=== PATIENT | male | born 1970 | race Caucasian/White ===

== ENCOUNTER → 2019-05-19 | Outpatient (CLI) | payer OTHER ==
--- NOTE | 2019-05-19 12:00 | CONS ---
CONSULTATION DATE OF SERVICE: 05/19/2019 A 48-year-old gentleman who [facility] for obstructive sleep apnea-hypopnea syndrome. HISTORY OF PRESENT ILLNESS/SLEEP-WAKE EVALUATION: Patient has been diagnosed with obstructive sleep apnea about 5 years ago. Since that time, he is on treatment with CPAP and he is using CPAP equipment every night. Recently, he started to have snoring while using his CPAP machine. He has second CPAP unit which is about 2 years old. Patient's sleep schedule from 10 to 6 on working days and from 10 p.m. to 8 am on weekends. Sometimes, he has problems with falling asleep. Has TV set in bedroom, usually sleeps on the side position with his , and according to her now he may have some snoring. He wakes up to one time with possibly one episode of nocturia but not every night. He does not take any naps. [place] Sleepiness Scale is 4. He drinks up to three caffeinated beverages during the day. No history of hypnagogic hallucinations, sleep paralysis or cataplexy. PAST MEDICAL HISTORY: Positive for hypertension. PAST SURGICAL HISTORY: Lump removed from breast. Results are benign. MEDICATIONS: Lisinopril. SOCIAL HISTORY: Negative for smoking. Alcohol consumption of beer and liquor on weekends. FAMILY HISTORY: Hypertension, snoring in the parents. REVIEW OF SYSTEMS: Snoring on CPAP occasionally awakening from sleep with nocturia. Patient increased his weight since the previous titration. PHYSICAL EXAM: gentleman without distress, BP 145/67, HR 71, RR 16, height 5 and 7, weight 210, body mass index 32.8, temperature 98.2, oxygen saturation at room air 98%. OROPHARYNX: Extremely low position of soft palate. Mallampati 4. Restriction of nasal breathing bilaterally. I checked patient's CPAP unit, patient using equipment 100% of the time, 30/30 nights more than 4 hours with average usage 9 hours per night. Leak only 2 L/minute. Apnea- hypopnea index reading from the machine 5.4, pressure is 8 cm of water. For the 6 months usage is 174/189 for more than 4 hours with average usage 7.8 hours. Leak is 17 L/minute. Apnea-hypopnea index 24.8 for 6 months. IMPRESSION: 1. Obstructive sleep apnea-hypopnea syndrome. Patient demonstrated 100% compliance with treatment. Presently has snoring while using CPAP equipment. Present apnea- hypopnea index mildly increased for the last 6 months was significantly increased, but leak from the mask was high at that time. 2. Obesity, body mass index 32.8. 3. Hypertension. 4. Status post lump removed from left side with benign results. 5. Significant restriction of nasal breathing bilaterally. PLAN: 1. I will change regimen to automatic regimen with the range of the pressure from 5- 12. 2. Patient will continue to use CPAP equipment every night for the whole night. 3. Watching and losing weight. 4. No driving if feeling sleepiness. Thank you very much for allowing me to participate in the management of your patient. Sincerely, Josué Gonzalez MD, PhD, FAASM Diplomat of [employer] Manager of [facility] [place] MMODL / NAMANN: [phone] /
== END | disposition home or self-care (01) ==
LOC: SLEEP 10:37
PROVIDERS: ATTEND Internal Medicine
DX: G47.33 Obstructive sleep apnea (adult) (pediatric) (principal); E66.9 Obesity, unspecified; Z68.32 Body mass index [BMI] 32.0-32.9, adult; I10 Essential (primary) hypertension; Z79.899 Other long term (current) drug therapy
CPT/HCPCS: 99211

== ENCOUNTER 2020-04-03 16:04 | Inpatient (IN) | payer OTHER ==
--- NOTE | 2020-04-03 16:17 | ED ---
Lower Extremity Injury HPI - General Source: patient, family Mode of arrival: ambulatory Limitations: no limitations <Julius Purdy - Last Filed: 04/03/20 20:17> <Eduardo Laird - Last Filed: 04/03/20 21:38> - General Chief Complaint: Extremity Injury, Lower Stated Complaint: Fall, ankle injury Time Seen by Provider: 04/03/20 16:14 - History of Present Illness Initial Comments: 49-year-old male presenting to emergency for him with a chief complaint of a fall. Patient reports this occurred about one hour prior to arrival. Patient states he was up on a ladder that is approximately 6 feet off the ground. Patient states the site step gave out and the ladder fell. Patient states his right foot was entangled into the ladder on the way down between the steps. Patient states he otherwise fell on his buttocks. States most of his pain is located on the right ankle along with swelling, erythema and ecchymosis in the region. Denies any numbness or tingling. He denies any pain elsewhere. He denies any loss of consciousness or head injury. He is not on blood thinners. (Julius Purdy) - Related Data Home Medications Medication Instructions Recorded Confirmed Ascorbic Acid [Vitamin C] 500 mg PO DAILY 04/03/20 04/03/20 Cholecalciferol [Vitamin D3 (25 2,000 unit PO DAILY 04/03/20 04/03/20 Mcg = 1000 Iu)] L.acidoph,Paracasei, B.lactis 2 cap PO DAILY 04/03/20 04/03/20 [Probiotic] Lisinopril-Hctz 10-12.5 mg 1 tab PO DAILY 04/03/20 04/03/20 [Zestoretic 10-12.5] Multivit-Mins/Iron/Folic/Lycop 2 tab PO DAILY 04/03/20 04/03/20 [Centrum Men's Tablet] Zinc 50 mg PO DAILY 04/03/20 04/03/20 Allergies Allergy/AdvReac Type Severity Reaction Status Date / Time No Known Allergies Allergy Verified 04/03/20 18:04 Review of Systems ROS Other: All systems not noted in ROS Statement are negative. <Julius Purdy - Last Filed: 04/03/20 20:17> ROS Other: All systems not noted in ROS Statement are negative. <SisiUri - Last Filed: 04/03/20 21:38> ROS Statement: Those systems with pertinent positive or pertinent negative responses have been documented in the HPI. Past Medical History Additional Past Medical History / Comment(s): kidney stones History of Any Multi-Drug Resistant Organisms: None Reported Past Surgical History: No Surgical Hx Reported Past Psychological History: No Psychological Hx Reported Smoking Status: Never smoker Past Alcohol Use History: Daily Past Drug Use History: None Reported <Julius Purdy - Last Filed: 04/03/20 20:17> General Exam Limitations: no limitations General appearance: alert, in no apparent distress Head exam: Present: atraumatic, normal inspection. Absent: other (Negative Babb sign, raccoon eyes, hemotympanum.) Eye exam: Present: normal appearance, PERRL, EOMI Pupils: Present: normal accommodation ENT exam: Present: normal exam, normal oropharynx, mucous membranes moist Neck exam: Present: normal inspection, full ROM. Absent: tenderness Respiratory exam: Present: normal lung sounds bilaterally. Absent: respiratory distress, wheezes, rales Cardiovascular Exam: Present: regular rate, normal rhythm, normal heart sounds Extremities exam: Present: tenderness (Tenderness at the medial malleoli), normal capillary refill, other (Palpable DP and PT.). Absent: normal inspection (Swelling and ecchymosis and erythema on the medial aspect of the right ankle.), full ROM (Limited range of motion in the right ankle), pedal edema, joint swelling, calf tenderness <Julius Purdy - Last Filed: 04/03/20 20:17> Course Vital Signs 04/03/20 04/03/20 04/03/20 16:07 16:48 18:16 Temperature 98.7 F 98.1 F Pulse Rate 79 64 Respiratory 18 16 16 Rate Blood Pressure 130/86 120/76 O2 Sat by Pulse 100 98 Oximetry 04/03/20 04/03/20 04/03/20 19:07 19:19 19:22 Temperature 99.4 F Pulse Rate 65 66 64 Respiratory 16 16 16 Rate Blood Pressure 122/82 116/83 115/64 O2 Sat by Pulse 99 100 100 Oximetry 04/03/20 04/03/20 04/03/20 19:34 19:36 19:50 Temperature 99.0 F Pulse Rate 66 68 63 Respiratory 16 16 16 Rate Blood Pressure 94/74 108/98 84/66 O2 Sat by Pulse 100 100 98 Oximetry 04/03/20 04/03/20 19:58 20:00 Temperature Pulse Rate 64 66 Respiratory 18 16 Rate Blood Pressure 105/77 122/77 O2 Sat by Pulse 97 99 Oximetry Procedures - Orthopedic Joint Reduction Joint #1 Consent Obtained: verbal consent Side: right Joint Reduction Location: ankle Analgesia: procedural sedation Amount of Anesthetic Used (mLs): 110 (Propofol) Technique Used: traction/counter-traction, direct manipulation Post-Reduction Neuro Exam: intact Post-Reduction Vascular Exam: intact Post Reduction X-Ray Obtained: Yes Post Reduction X-Ray Results: reduced Splint Applied: Yes Patient Tolerated Procedure: well, no complications - Orthopedic Splinting/Casting Injury #1 Side: right Lower Extremity Injury Location: ankle Lower Extremity Immobilizer: posterior splint, Bernardo wrap, synthetic pre-padded splint <Julius Purdy - Last Filed: 04/03/20 20:17> Medical Decision Making <Julius Purdy - Last Filed: 04/03/20 20:17> <Eduardo Laird - Last Filed: 04/03/20 21:38> - Medical Decision Making 49-year-old male presenting to the emergency department with chief complaint of a fall. Physical examination reveals injury to the right ankle with localized swelling, tenderness and ecchymosis. X-rays of the foot and ankle and tib-fib reveal a right distal fibular fracture with a subluxation of the tibiotalar joint and widening of the medial clear space. There is also questionable poste rior malleolus fracture. I discussed the case with ROZINA fernandez who advised symptomatic control and joint reduction along with splinting in the emergency department. This was performed in conjunction with the attending, Dr. Laird. Procedural production. Posterior splint with ankle stirrups applied. Patient was given morphine for symptomatic relief. Post reduction x-ray reveals interval reduction of the joint. Patient is otherwise neurovascularly intact before and after reduction. I spoke with candelaria kwong again who says the patient can be admitted under . Per Brandon, surgery will likely be performed on . Case was discussed with . Patient informed regarding the plan and he is agreeable. Admitting physician will be . (Julius Purdy) Procedural sedation note: The patient does request procedural sedation for reduction of his right ankle dislocation. This some benefits are discussed in detail and verbal consent is obtained. The patient was placed on cardiorespiratory monitoring and capnometer monitoring. With nurse and respiratory therapist present, he received several doses of propofol. He tolerated this quite well. No complications were encountered during the procedural sedation. There is no blood loss. The sedation was started at 1916 and ended at 1923. The patient woke up very nicely and does not remember the incident. (Eduardo Laird) Disposition Is patient prescribed a controlled substance at d/c from ED?: No Time of Disposition: 20:23 <Julius Purdy - Last Filed: 04/03/20 20:17> <Eduardo Laird - Last Filed: 04/03/20 21:38> Clinical Impression: Closed right ankle fracture, Fracture of distal end of fibula Disposition: ADMITTED IP TO THIS HOSP Condition: Good
[2020-04-03] MEDS ORDERED: MORPHINE SULFATE 4 MG/ML SYRINGE IM STA (16:24)
--- NOTE | 2020-04-03 16:55 | XR ---
RESULT: HISTORY: fall injury with pain. TECHNIQUE: 2 views of the right ankle were obtained. COMPARISON: None. FINDINGS: There is a mildly displaced high fracture of the distal fibula. There is also a suspicious fracture o f the posterior malleolus. No evidence of dislocation. No radiopaque foreign body. There is mild wide ryan of the medial clear space. IMPRESSION: Acute distal fibular fracture with mild widening of the medial clear space. Suspected posterior malleolar fracture.
--- NOTE | 2020-04-03 18:03 | XR ---
RESULT: HISTORY: fall, ankle fx TECHNIQUE: 2 views of the right tibia-fibula. AP view of the right ankle. 3 views of the right foot. COMPARISON: Earlier same day. FINDINGS: There is a mildly displaced high fracture of the distal fibula. There is mild medial subluxation of t he tibiofibular joint and resultant mild widening of the medial clear space. No acute fracture of the proximal tibia or fibula. No acute fracture of the right foot. IMPRESSION: Right distal fibula fracture with subluxation of the tibiotalar joint and widening of the medial elsi r space.
--- NOTE | 2020-04-03 18:04 | XR ---
RESULT: HISTORY: fall with pain. TECHNIQUE: AP view of pelvis were obtained. COMPARISON: None. FINDINGS: There is no acute fracture or dislocation. The visualized joint spaces are grossly preserved. IMPRESSION: No acute osseous abnormality.
[2020-04-03] MEDS ORDERED: PROPOFOL 10 MG/ML 20 ML VIAL IV ONE ×2 (18:31→19:20)
--- NOTE | 2020-04-03 19:13 | XR ---
RESULT: HISTORY: fall ,injury TECHNIQUE: 2 views of the right tibia-fibula. AP view of the right ankle. 3 views of the right foot. COMPARISON: Earlier same day. FINDINGS: There is a mildly displaced high fracture of the distal fibula. There is mild medial subluxation of t he tibiofibular joint and resultant mild widening of the medial clear space. No acute fracture of the proximal tibia or fibula. No acute fracture of the right foot. IMPRESSION: Right distal fibula fracture with subluxation of the tibiotalar joint and widening of the medial elsi r space.
--- NOTE | 2020-04-03 19:53 | XR ---
RESULT: HISTORY: post reduction TECHNIQUE: 3 views of the right ankle were obtained. COMPARISON: Earlier same day. FINDINGS: There is interval reduction and splinting of the distal fibular fracture, with similar alignment, com pared to the index radiographs. There is persistent widening of the medial clear space. There is agai n questionable fracture of the posterior malleolus. IMPRESSION: As above.
[2020-04-03] MEDS ORDERED: MORPHINE SULFATE 4 MG/ML SYRINGE IVP STA (19:59)
[2020-04-03] MEDS ORDERED: ONDANSETRON 4 MG/2 ML VIAL IVP PRN (20:15)
[2020-04-03] MEDS ORDERED: LORazepam 2 MG/ML INJ IV PRN (20:15)
[2020-04-03] MEDS ORDERED: traMADol 50 MG TAB PO PRN (20:15)
[2020-04-03] MEDS ORDERED: IBUPROFEN 400 MG TAB PO PRN (20:15)
[2020-04-03] MEDS ORDERED: ACETAMINOPHEN TAB 325 MG TAB PO PRN (20:15)
[2020-04-03] MEDS ORDERED: HYDROmorphone 0.5 MG/0.5 ML SYRINGE IVP PRN (20:15)
[2020-04-03] MEDS ORDERED: MORPHINE SULFATE 4 MG/ML SYRINGE IV PRN (20:15)
[2020-04-03] MEDS ORDERED: NALOXONE 0.4 MG/ML 1 ML VIAL IV PRN (20:15)
[2020-04-03] MEDS ORDERED: HYDROmorphone 1 MG/ML 1 ML SYRINGE IVP PRN (20:15)
[2020-04-03] MEDS: HYDROcodone/APAP 5-325MG 1 EACH TAB PO PRN (22:05)
[2020-04-03] MEDS: HEPARIN SODIUM,PORCINE 5,000 UNIT/ML 1 ML VIAL SQ SCH (22:06)
[2020-04-03 22:40] LABS: Basophils % (A) 0 %; Eosinophils # (A) 0.1 k/uL (0-0.7); Eosinophils % (A) 1 %; HCT 39.8 % (39.0-53.0); HGB 13.7 gm/dL (13.0-17.5); Lymphocytes # (A) 1.1 k/uL (1.0-4.8); Lymphocytes % (A) 11 %; MCH 32.2 pg (25.0-35.0); MCHC 34.5 g/dL (31.0-37.0); MCV 93.4 fL (80.0-100.0); Mean Platelet Volume 7.1; Monocytes # (A) 0.6 k/uL (0-1.0); Monocytes % (A) 6 %; Neutrophils # (A) 8.2 k/uL (1.3-7.7); Neutrophils % (A) 81 %; Platelet Count 204 k/uL (150-450); RBC 4.27 m/uL (4.30-5.90); RDW 12.4 % (11.5-15.5); WBC 10.2 k/uL (3.8-10.6)
[2020-04-04] MEDS: HYDROcodone/APAP 5-325MG 1 EACH TAB PO PRN ×3 (08:08→19:19)
[2020-04-04] MEDS: HEPARIN SODIUM,PORCINE 5,000 UNIT/ML 1 ML VIAL SQ SCH ×2 (08:09→21:08)
[2020-04-04] MEDS: MULTIVITAMINS, THERA 1 EACH TAB PO SCH (08:44)
[2020-04-04] MEDS: ZINC SULFATE 220 MG CAP PO SCH (08:44)
[2020-04-04] MEDS: ASCORBIC ACID 500 MG TAB PO SCH (08:44)
[2020-04-04] MEDS: LACTOBACILLUS ACIDOPH & BULGAR 1 EACH PACKET PO SCH (08:44)
[2020-04-04] MEDS: CHOLECALCIFEROL 1,000 UNIT TAB PO SCH (08:44)
[2020-04-04 09:15] LABS: Prothrombin Time 10.6 sec (9.0-12.0)
[2020-04-04 10:06] LABS: African American GFR (CKD) 115.8 (60.0-200.0); Albumin 4.2 g/dL (3.80-4.90); Albumin/Globulin Ratio 1.83 (1.60-3.17); Anion Gap 9.3 mmol/L (4.00-12.00); BUN/Creat Ratio 27.78 Ratio (12.00-20.00); Calcium 9.2 mg/dL (8.7-10.3); Carbon Dioxide 25.7 mmol/L (21.6-31.8); Globulin 2.3 g/dL (1.6-3.3); Non-African American GFR(CKD) 99.9 (60.0-200.0); Potassium 3.9 mmol/L (3.5-5.5); Total Bilirubin 0.9 mg/dL (0.2-1.2); Total Protein 6.5 g/dL (6.2-8.2)
[2020-04-04] MEDS: LISINOPRIL-HCTZ 10-12.5 MG 1 EACH TAB PO SCH (10:14)
--- NOTE | 2020-04-04 10:31 | P.HPOR ---
History of Present Illness H&P Date: 04/04/20 Chief Complaint: Right ankle fracture Patient is a 49-year-old male who presented to [facility] yesterday later afternoon after sustaining an injury to his right ankle. Patient was on a ladder about 6 feet up when he lost his balance and stumbled on the ladder, his foot became twisted in the ladder and he fel onto his back. He had immediate pain along with swelling to the right ankle, he reported to the hospital for further evaluation. Upon arrival to the hospital, imaging and lab tests were done. Images demonstrated a bimalleolar fracture involving the distal fibula and posterior malleus the tibia along with a tibiotalar dislocation. I was contacted by the emergency room staff regarding the patient, I was able to review the images with my attending Dr. Chirinos. We recommended sedation at bedside with relocation and splinting with plan for surgical intervention in the near future. ER staff was able to relocate and splint the right lower extremity, patient's neurovascular status was intact prior and after the procedure. Patient was a dmitted under orthopedic care with plan for surgical intervention. Patient was evaluated today at bedside, he is resting in his hospital bed. He appears to be in no acute distress. He notes most discomfort involving the right ankle mainly with movement. There is a posterior splint with Bernardo bandage fixation present. He denies any knee pain, proximal femur, hip pain. He denies any pain of the left lower extremity, bilateral upper extremities, cervical, thoracic, or lumbar pain. He denies any numbness or tingling in bilateral lower extremities bilateral upper extremities. Patient denies any previous surgery involving the right lower extremity. He currently denies any headaches, lightheadedness, chest pain, shortness of breath, nausea vomiting, fever or chills. Review of Systems Constitutional: Reports as per HPI Past Medical History Past Medical History: Hypertension Additional Past Medical History / Comment(s): kidney stones History of Any Multi-Drug Resistant Organisms: None Reported Past Surgical History: No Surgical Hx Reported Additional Past Surgical History / Comment(s): cyst removed from L axilla Past Anesthesia/Blood Transfusion Reactions: No Reported Reaction Past Psychological History: No Psychological Hx Reported Smoking Status: Never smoker Past Alcohol Use History: Daily Past Drug Use History: None Reported - Past Family History Father Additional Family Medical History / Comment(s): cancer of the neck; tumor removed Medications and Allergies Home Medications Medication Instructions Recorded Confirmed Type Ascorbic Acid [Vitamin C] 500 mg PO DAILY 04/03/20 04/03/20 History Cholecalciferol [Vitamin D3 (25 2,000 unit PO DAILY 04/03/20 04/03/20 History Mcg = 1000 Iu)] L.acidoph,Paracasei, B.lactis 2 cap PO DAILY 04/03/20 04/03/20 History [Probiotic] Lisinopril-Hctz 10-12.5 mg 1 tab PO DAILY 04/03/20 04/03/20 History [Zestoretic 10-12.5] Multivit-Mins/Iron/Folic/Lycop 2 tab PO DAILY 04/03/20 04/03/20 History [Centrum Men's Tablet] Zinc 50 mg PO DAILY 04/03/20 04/03/20 History Allergies Allergy/AdvReac Type Severity Reaction Status Date / Time No Known Allergies Allergy Verified 04/03/20 18:04 Physical Examination Right lower extremity: Posterior splint is in good position and condition with Bernardo bandage fixation. He is able to wiggle the toes and no difficulty. His sensation to light touch both proximal and distal to the splinter intact. according to the ER note, there is no significant skin tears or abnormalities noted prior to after the reduction. There was notable ecchymosis. No effusion surrounding the knee, no tenderness with palpation of the knee. There is no tenderness with palpation of the proximal femur. Logroll maneuver reproduces no pain. He is able to straight leg raise with no pain. Calf is soft, no tenderness with palpation. Cap refill in the toes is less than 2 seconds. General orthopedic exam: Patient demonstrates no tenderness with palpation of the cervical, thoracic or lumbar spine region including midline and paraspinal region, there is no obvious skin changes noted Full range of motion of all major muscle groups of the bilateral upper extremities No obvious skin changes are noted in the left lower extremity, he is nontender with palpation throughout the extremity. Range of motion of all major muscle groups is intact. Sensory exam to light touch throughout the extremity is in tact. Dorsalis pedis pulse and posterior tibialis pulses are 2+. Results - Labs Labs: Abnormal Lab Results - Last 24 Hours (Table) 01/12/21 01/12/21 Range/Units 22:20 22:20 RBC 4.27 L (4.30-5.90) m/uL Neutrophils # 8.2 H (1.3-7.7) k/uL BUN/Creatinine Ratio 27.78 H (12.00-20.00) Ratio H & H 04/03/20 Range/Units 22:20 Hgb 13.7 (13.0-17.5) gm/dL Hct 39.8 (39.0-53.0) % Coagulation 04/03/20 Range/Units 22:20 INR 1.0 (<1.2) Result Diagrams: 04/03/20 22:20 04/03/20 22:20 - Diagnostic results Hip x-ray: report reviewed, image reviewed Ankle/Foot x-ray: report reviewed, image reviewed Assessment and Plan Assessment: Imaging: Multiple x-rays were taken in the emergency room yesterday, those were reviewed both report and images. Images of the foot demonstrated no acute fractures or dislocations of the midfoot, forefoot or hindfoot. X-rays of the ankle demonstrated r and syndesmotic disruption ight bimalleolar ankle fracture with tibiotalar dislocation, post reduction x-rays were also reviewed which demonstrated relocation of the joint, evident of the comminuted distal fibular fragments along with posterior malleolus fracture of the tibia. X-rays of the tib-fib do demonstrate no acute findings involving the right knee. Pelvis x-rays also demonstrated no acute osseous abnormalities or fractures. Plan: Right ankle bimalleolar fracture with syndesmotic injury Right ankle tibiotalar dislocation, status post relocation with splinting Status post fall from ladder Plan: I was able to discuss the case, including the physical exam findings and imaging studies my attending Dr. Chirinos on 04/03/2020. After admission, proper lab test and medications were ordered. Plan is for surgery on 04/05/2020. We will proceed with an open reduction internal fixation of the right bimalleolar ankle fracture with syndesmotic repair. Risk and benefits of the procedure were discussed with the patient, this to include but do not exclude infection, blood loss, neurovascular injury, developmental blood clots, and adequate healing of bone, need for subsequent surgery. Obtain consent NPO after midnight Nonweightbearing right lower extremity Pain control, oral and IV medication as needed DVT prophylaxis, heparin 5000 units every 12 hours was started, this we discontinued the night before surgery and restarted after. Anticipate aspirin 325 mg daily for discharge Medical recommendations Further recommendations to follow
--- NOTE | 2020-04-04 20:47 | P.CONS ---
History of Present Illness - Reason for Consult Consult date: 04/04/20 Medical management Requesting physician: Froilan Chirinos - Chief Complaint Right ankle injury - History of Present Illness Consultation: This is a pleasant 49-year-old patient of Dr. Perales. Patient was working on a ladder on uneven ground and lost balance. The ladder fell on his right ankle. Resulting in severe pain. Patient brought into the ER x-ray did confirm a fracture. Patient denies any cardiac or pulmonary history. Has got a good exercise tolerance. No cardiac or respiratory symptoms. No fever no chills. Has a history of hypertension. And kidney stones in the past. Has got a Bernardo wrap in the right ankle. Due for surgery tomorrow. 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 . Has one mixed drink a day. Physical examination: VITAL SIGNS: 98.6, 63, 16, 129/82, 96% room air GENERAL: BMI 29%, laying in bed, comfortable. EYES: Pupils equal. Conjunctiva normal. HEENT: External appearance of nose and ears normal, oral cavity grossly normal. NECK: JVD not raised; masses not palpable. HEART: First and second heart sounds are normal; no edema. LUNGS: Respiratory rate normal; clear to auscultation. ABDOMEN: Soft, nontender, liver spleen not palpable, no masses palpable. PSYCH: Alert and oriented x3; mood and affect normal MUSCULAR skeletal: Right ankle in a Bernardo wrap dressing.. NEUROLOGICAL: Cranial nerves grossly intact; no facial asymmetry, power and sensation grossly intact. LYMPHATICS: No lymph nodes palpable in the axilla and neck INVESTIGATIONS, reviewed in the clinical context: White count 10.2 hemoglobin 13.7 platelets 204 potassium 3.9 creatinine 0.9 Right foot [id number] displaced high fracture of the distal fibula. Mild medial subluxation of the tibiofibular joint. Assessment: -Acute subluxation of the tibiotalar joint with widening of the medial sclera space secondary to fall -Right distal tibia fracture, 60 to fall -Essential hypertension -Kidney stones asymptomatic Plan: Patient is on heparin for DVT prophylaxis. Pain control in place. Home medications resumed. Care was discussed with the patient. Questions were answered. Baseline EKG is being ordered. Cardiovascular risk assessment for surgery: Patient is a low risk for surgery given that patient has no cardio pulmonary risk factors or symptoms. Has got a good excise tolerance. Expected blood loss from the surgery to be low. Care was discussed with the patient question a nswered. Thank you Dr. López Past Medical History Past Medical History: Hypertension Additional Past Medical History / Comment(s): kidney stones History of Any Multi-Drug Resistant Organisms: None Reported Past Surgical History: No Surgical Hx Reported Additional Past Surgical History / Comment(s): cyst removed from L axilla Past Anesthesia/Blood Transfusion Reactions: No Reported Reaction Past Psychological History: No Psychological Hx Reported Smoking Status: Never smoker Past Alcohol Use History: Daily Past Drug Use History: None Reported - Past Family History Father Additional Family Medical History / Comment(s): cancer of the neck; tumor removed Medications and Allergies Home Medications Medication Instructions Recorded Confirmed Type Ascorbic Acid [Vitamin C] 500 mg PO DAILY 04/03/20 04/03/20 History Cholecalciferol [Vitamin D3 (25 2,000 unit PO DAILY 04/03/20 04/03/20 History Mcg = 1000 Iu)] L.acidoph,Paracasei, B.lactis 2 cap PO DAILY 04/03/20 04/03/20 History [Probiotic] Lisinopril-Hctz 10-12.5 mg 1 tab PO DAILY 04/03/20 04/03/20 History [Zestoretic 10-12.5] Multivit-Mins/Iron/Folic/Lycop 2 tab PO DAILY 04/03/20 04/03/20 History [Centrum Men's Tablet] Zinc 50 mg PO DAILY 04/03/20 04/03/20 History Allergies Allergy/AdvReac Type Severity Reaction Status Date / Time No Known Allergies Allergy Verified 04/03/20 18:04 Physical Exam Vitals: Vital Signs Temp Pulse Pulse Resp BP BP Pulse Ox 04/04/20 08:30 16 04/04/20 08:00 98.6 F 63 16 129/82 96 04/04/20 02:23 98.0 F 67 16 113/67 97 04/03/20 22:10 98.4 F 62 18 136/79 97 04/03/20 20:00 66 16 122/77 99 04/03/20 19:58 64 18 105/77 97 04/03/20 19:50 99.0 F 63 16 84/66 98 04/03/20 19:36 68 16 108/98 100 04/03/20 19:34 66 16 94/74 100 04/03/20 19:22 64 16 115/64 100 04/03/20 19:19 66 16 116/83 100 04/03/20 19:07 99.4 F 65 16 122/82 99 04/03/20 18:16 98.1 F 64 16 120/76 98 04/03/20 16:48 16 04/03/20 16:07 98.7 F 79 18 130/86 100 Intake and Output 04/03/20 04/04/20 04/04/20 22:59 06:59 14:59 Intake Total 790 Balance 790 Intake: Oral 790 Other: Voiding Method Urinal Urinal # Voids 1 Weight 88.451 kg Results CBC & Chem 7: 04/03/20 22:20 04/03/20 22:20 Labs: Abnormal Lab Results - Last 24 Hours (Table) 04/03/20 04/03/20 Range/Units 22:20 22:20 RBC 4.27 L (4.30-5.90) m/uL Neutrophils # 8.2 H (1.3-7.7) k/uL BUN/Creatinine Ratio 27.78 H (12.00-20.00) Ratio
[2020-04-05] MEDS: MULTIVITAMINS, THERA 1 EACH TAB PO SCH (08:16)
[2020-04-05] MEDS: ASCORBIC ACID 500 MG TAB PO SCH (08:16)
[2020-04-05] MEDS: CHOLECALCIFEROL 1,000 UNIT TAB PO SCH (08:16)
[2020-04-05] MEDS: ZINC SULFATE 220 MG CAP PO SCH (08:16)
[2020-04-05] MEDS: LACTOBACILLUS ACIDOPH & BULGAR 1 EACH PACKET PO SCH (08:16)
[2020-04-05] MEDS: LISINOPRIL-HCTZ 10-12.5 MG 1 EACH TAB PO SCH (08:45)
[2020-04-05] MEDS ORDERED: fentaNYL (PF) 50 MCG/ML 2 ML AMP IVP ONE (17:21)
[2020-04-05] MEDS ORDERED: MIDAZOLAM 2 MG/2 ML VIAL IVP ONE (17:21)
[2020-04-05] MEDS ORDERED: LACTATED RINGERS 1,000 ML IV ONE ×2 (17:23→20:27)
[2020-04-05] MEDS ORDERED: ONDANSETRON 4 MG/2 ML VIAL IVP ONE (17:24)
[2020-04-05] MEDS ORDERED: DEXAMETHASONE SOD PHOSPHATE 4 MG/ML 1 ML VIAL IVP ONE (17:25)
[2020-04-05] MEDS ORDERED: SUCCINYLCHOLINE CHLORIDE 100 MG/5 ML SYR IV ONE (19:15)
[2020-04-05] MEDS ORDERED: ROPIVACAINE 5 MG/ML 30 ML VIAL ONE (19:15)
[2020-04-05] MEDS ORDERED: fentaNYL (PF) 50 MCG/ML 2 ML AMP ONE (19:15)
[2020-04-05] MEDS ORDERED: MIDAZOLAM 2 MG/2 ML VIAL ONE (19:15)
[2020-04-05] MEDS ORDERED: PHENYLEPHRINE 10 MG/ML VIAL ONE (19:15)
[2020-04-05] MEDS ORDERED: LIDOCAINE 1% INJ 10MG/ML (20 ML MDV) ONE (19:15)
[2020-04-05] MEDS ORDERED: PROPOFOL 10 MG/ML 20 ML VIAL IV ONE (19:15)
[2020-04-05] MEDS ORDERED: SODIUM CHLORIDE 0.9% 100 ML with ceFAZolin 2,000 MG IV ONE ×4 (19:18)
--- NOTE | 2020-04-05 20:51 | P.OP ---
Date of Procedure: 04/05/20 Preoperative Diagnosis: Displaced/comminuted right ankle lateral malleolar fracture with syndesmotic disruption Postoperative Diagnosis: Same Procedure(s) Performed: 1. Open reduction and internal fixation right ankle lateral malleolar fracture 2. Open repair right ankle syndesmotic injury Implants: Arthrex 7 hole one third semitubular plate Arthrex syndesmotic tight rope Anesthesia: GETA, regional (Popliteal block) Surgeon: Froilan Chirinos Boating Safety Officer #1: Gavin Harvey Estimated Blood Loss (ml): 12 Pathology: none sent Condition: stable Disposition: PACU Indications for Procedure: 49-year-old gentleman seen with a displaced/comminuted high lateral right ankle malleolar fracture with syndesmotic injury. I recommended ORIF lateral malleolar fracture with repair syndesmotic injury. He was agreeable and consent was obtained. Operative Findings: See description of procedure Description of Procedure: The patient was taken to the operative suite. The patient did have a popliteal block performed by the department of anesthesia for postoperative pain management. He underwent a general anesthetic by the department of anesthesia. He received preoperative IV antibiotics. A well-padded tourniquet placed proximal right lower extremity. Right lower extremity prepped and draped in the normal sterile orthopedic fashion. The extremity was elevated and tourniquet insufflated to 300. An incision was made beginning proximal to the fracture site extending all the way distally in line with the lateral malleolus sharply through skin. We carefully dissected on the fracture site and distally. There was a fairly comminuted fracture with large posterior butterfly fragment. The fracture was reduced with the assistance of Brandon HANDY. I placed a 7 hole one third semitubular plate along the lateral malleolus and secured. The 3 distal and 3 proximal drill holes were made and appropriate length screws were inserted all achieving good bite and purchase. I reviewed the construct and noted good reduction of the fracture with synagogue of the mortise. I decided to stabilize the mortise given the significant syndesmotic injury. I I had Brandon HANDY hole the ankle in neutral position while I drilled a hole across the syndesmotic joint utilizing a cannulated drill bit. I now introduced and the Arthrex tight rope syndesmotic button repair system exiting out the medial side of the tibia. The button flipped. We now attention to the tight rope accordingly stabilize the syndesmotic Yao. Suture limbs were clipped. I now reviewed the entire construct under AP lateral and oblique intraoperative imaging. There was synagogue of the mortise. There was good stable alignment of the fracture. Spot films were obtained to document this. The wounds were irrigated. The subcu soft tissues were repaired 2-0 Vicryl. The skin is proximal skin letty. Sterile dressings were applied. The tourniquet was raised may Refill noted. A modified bulky Wang splint was now placed with ankle in neutral position. The patient was awakened, transferred to a bed and recovery stable condition. Brandon HANDY assisted with the entire procedure.
--- NOTE | 2020-04-05 20:56 | P.PN ---
Progress Note - Text Progress Note Date: 04/05/20 - Chief Complaint Right ankle injury - History of Present Illness Consultation: This is a pleasant 49-year-old patient of Dr. Perales. Patient was working on a ladder on uneven ground and lost balance. The ladder fell on his right ankle. Resulting in severe pain. Patient brought into the ER x-ray did confirm a fracture. Patient denies any cardiac or pulmonary history. Has got a good exercise tolerance. No cardiac or respiratory symptoms. No fever no chills. Has a history of hypertension. And kidney stones in the past. Has got a Bernardo wrap in the right ankle. Due for surgery tomorrow. Admitted with acute subluxation of the tibiotalar joint with widening of the medial sclera space, on the right foot Today-saw the patient this afternoon. Pending to go down for surgery. Late in the day patient was taken for surgery. Active Medications Acetaminophen (Acetaminophen Tab 325 Mg Tab) 650 mg PO Q6HR PRN PRN Reason: Mild Pain or Fever > 100.5 Hydrocodone Bitart/Acetaminophen (Hydrocodone/Apap 5-325mg 1 Each Tab) 1 each PO Q4HR PRN PRN Reason: Moderate Pain Last Admin: 04/04/20 19:19 Dose: 1 each Documented by: Ascorbic Acid (Ascorbic Acid 500 Mg Tab) 500 mg PO DAILY [facility] Last Admin: 04/05/20 08:16 Dose: Not Given Documented by: Cholecalciferol (Cholecalciferol 1,000 Unit Tab) 2,000 unit PO DAILY [facility] Last Admin: 04/05/20 08:16 Dose: Not Given Documented by: Lisinopril/HCTZ (Lisinopril-Hctz 10-12.5 Mg 1 Each Tab) 1 each PO DAILY [facility] Last Admin: 04/05/20 08:45 Dose: 1 each Documented by: Hydromorphone HCl (Hydromorphone 0.5 Mg/0.5 Ml Syringe) 0.5 mg IVP Q3HR PRN PRN Reason: Moderate Pain Hydromorphone HCl (Hydromorphone 1 Mg/Ml 1 Ml Syringe) 1 mg IVP Q3HR PRN PRN Reason: Severe Pain Cefazolin Sodium 2 gm/ Sodium (Chloride) 50 mls @ 100 mls/hr IVPB Q8H [facility] Stop: 04/06/20 11:59 Ibuprofen (Ibuprofen 400 Mg Tab) 400 mg PO Q6HR PRN PRN Reason: Mild Pain or Fever > 100.5 Lactobacillus Acidoph/Bulgaricus (Lactobacillus Acidoph & Bulgar 1 Each Packet) 1 each PO DAILY [facility] Last Admin: 04/05/20 08:16 Dose: Not Given Documented by: Lorazepam (Lorazepam 2 Mg/Ml Inj) 0.5 mg IV Q6HR PRN PRN Reason: Anxiety Morphine Sulfate (Morphine Sulfate 4 Mg/Ml Syringe) 4 mg IV Q4HR PRN PRN Reason: Severe Pain Multivitamins (Multivitamins, Thera 1 Each Tab) 1 each PO DAILY [facility] Last Admin: 04/05/20 08:16 Dose: Not Given Documented by: Naloxone HCl (Naloxone 0.4 Mg/Ml 1 Ml Vial) 0.2 mg IV Q2M PRN PRN Reason: Opioid Reversal Ondansetron HCl (Ondansetron 4 Mg/2 Ml Vial) 4 mg IVP Q8HR PRN PRN Reason: Nausea And Vomiting Tramadol HCl (Tramadol 50 Mg Tab) 50 mg PO Q6H PRN PRN Reason: Moderate Pain Zinc Sulfate (Zinc Sulfate 220 Mg Cap) 220 mg PO DAILY [facility] Last Admin: 04/05/20 08:16 Dose: Not Given Documented by: Past medical history to include: Hypertension, kidney stones Social history: 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 . Has one mixed drink a day. Physical examination: VITAL SIGNS: 98.5, 78, 17, 126 a 74, 95% room air GENERAL: BMI 29%, laying in bed, comfortable. EYES: Pupils equal. Conjunctiva normal. HEENT: External appearance of nose and ears normal, oral cavity grossly normal. NECK: JVD not raised; masses not palpable. HEART: First and second heart sounds are normal; no edema. LUNGS: Respiratory rate normal; clear to auscultation. ABDOMEN: Soft, nontender, liver spleen not palpable, no masses palpable. PSYCH: Alert and oriented x3; mood and affect normal MUSCULAR skeletal: Right ankle in a Bernardo wrap dressing.. INVESTIGATIONS, reviewed in the clinical context: White count 10.2 hemoglobin 13.7 platelets 204 potassium 3.9 creatinine 0.9 Right foot [id number] displaced high fracture of the distal fibula. Mild medial subluxation of the tibiofibular joint. Assessment: -Acute subluxation of the tibiotalar joint with widening of the medial sclera space secondary to fall-related today underwent open reduction internal fixation. -Right distal tibia fracture, 60 to fall -Essential hypertension -Kidney stones asymptomatic Plan: Continue current medication treatment plan. Patient's prophylactically on IV Ancef. Pain control in place. Add Lovenox for DVT prophylaxis. Thank you Dr. López
--- NOTE | 2020-04-05 21:10 | P.ANPRN ---
Procedure Note - Anesthesia - Nerve Block Performed Right Popliteal Time Out Performed: Yes (17:20) Date of Procedure: 04/05/20 Procedure Start Time: : Procedure Stop Time: 17:34 Location of Patient: PreOp Indication: Acute Post-Operative Pain, Requested by Surgeon (Dr Chirinos) Sedation Type: Sedate with meaningful contact maintained Preparation: Sterile Prep Position: Left Lateral Catheter: None Needle Types: Pajunk Needle Gauge: Other (see comment) (22g) Ultrasound used to visualize needle placement: Yes Ultrasound used to observe medication spread: Yes Injectate: 0.5% Ropivacaine (see comment for volume) (20cc) Blood Aspirated: No Pain Paresthesia on Injection Noted: No Resistance on Injection: Normal Image Stored and Saved: Yes Events: Uneventful and Well Tolerated
[2020-04-06 03:43] VITALS: RESP 18
[2020-04-06 07:35] VITALS: BP 102/60; PULSE 70; TEMP 98.5
[2020-04-06] MEDS: LISINOPRIL-HCTZ 10-12.5 MG 1 EACH TAB PO SCH (08:02)
[2020-04-06] MEDS: ZINC SULFATE 220 MG CAP PO SCH (08:02)
[2020-04-06] MEDS: CHOLECALCIFEROL 1,000 UNIT TAB PO SCH (08:02)
[2020-04-06] MEDS: ASCORBIC ACID 500 MG TAB PO SCH (08:02)
[2020-04-06] MEDS: MULTIVITAMINS, THERA 1 EACH TAB PO SCH (08:02)
[2020-04-06] MEDS: LACTOBACILLUS ACIDOPH & BULGAR 1 EACH PACKET PO SCH (08:02)
--- NOTE | 2020-04-06 08:52 | FL ---
Fluoroscopy HISTORY: Open reduction internal fixation, ankle fracture 2 minutes 34 seconds fluoroscopy time supplied to the referring clinician. 3 intraoperative C-arm im ages document the procedure. See dictated report from orthopedic surgery.
[2020-04-06] MEDS ORDERED: ENOXAPARIN 40 MG/0.4 ML SYRINGE SQ SCH (09:00)
--- NOTE | 2020-04-06 09:25 | XR ---
Limited right ankle HISTORY: Open reduction internal fixation, fracture 3 intraoperative C-arm images document the procedure.
--- NOTE | 2020-04-06 10:40 | P.PN ---
Subjective Progress Note Date: 04/06/20 Principal diagnosis: Status post ORIF right ankle fracture with syndesmotic repair Patient evaluated at bedside today, he is resting comfortably, he's having no acute pain. He denies any headaches, chest pain, shortness of breath, nausea vomiting, fever or chills. He does note some vague on this and tingling in the toes, cyst likely due to the popliteal block was given prior to surgery. Patient is utilizing a knee scooter with regards to ambulation Objective - Vital Signs Vital signs: Vital Signs Temp 98.5 F 04/06/20 07:34 Pulse 70 04/06/20 08:00 Resp 18 04/06/20 08:00 BP 102/60 04/06/20 07:34 Pulse Ox 98 04/06/20 07:34 Intake & Output 04/05/20 04/06/20 04/06/20 18:59 06:59 18:59 Intake Total 1100 1100 Output Total 500 912 Balance 600 188 Intake: IV 1100 1100 Output: Urine 500 900 Estimated Blood Loss 12 Other: Voiding Method Urinal Urinal Urinal - Exam Right lower extremity: Postop splint is in good position and condition. Minimal soft tissue swelling noted throughout the toes. Sensation to light touch is intact proximal to the splint. He does note some vague numbness throughout the toes. Patient is able to wiggle the toes with no issues. Compartments of the upper leg are soft. Cap refill is less than 2 seconds - Labs CBC & Chem 7: 04/03/20 22:20 04/03/20 22:20 Assessment and Plan Assessment: Status post ORIF right ankle lateral malleolus fracture with syndesmotic repair Plan: Pain control, plan for discharge home on [place] 5 mg/325 mg DVT prophylaxis, aspirin 325 mg daily for 2 weeks Split instructions were discussed Weightbearing and activity level instructions discussed Icing and elevating techniques discussed Plan for follow-up in the outpatient setting in 2 weeks, stable for discharge home today Time with Patient: Less than 30
--- NOTE | 2020-04-06 10:46 | P.DS ---
Providers Date of admission: 04/06/20 07:57 Expected date of discharge: 04/06/20 Attending physician: Froilan Chirinos Consults: 04/04/20 08:02 Consult Physician Routine Consulting Provider: Dennis Quach Consult Reason/Comments: Medical management Do you want consulting provider notified?: Yes Primary care physician: [facility] Course: Date of admission: 04/03/2020 Date of discharge: 04/06/2020 Admission diagnosis: Displaced and comminuted right ankle lateral malleolus fracture with syndesmotic ligament disruption, tibiotalar dislocation status post relocation Discharge diagnosis: Status post ORIF right ankle lateral malleolus fracture with open syndesmotic ligament repair Attending physician: Dr. Chirinos Surgical procedures: ORIF right ankle lateral malleolus fracture with open syndesmotic repair Brief history: Patient is a 49-year-old male who presented to [facility] 04/03[facility]2020 for evaluation of a right ankle injury after falling off a 6 foot ladder. During the fall, his leg was twisted and the steps and he fell onto his back. He had immediate pain and noticed deformity of the right ankle and was unable to weight-bear. Upon arrival to the hospital, imaging and lab tests were done. Images demonstrated a comminuted and displaced lateral malleolus fracture with syndesmotic ligament disruption of the right ankle along with a tibiotalar dislocation. Sedation was provided by the emergency room staff, the ankle was relocated and splinted. Patient was admitted under orthopedic care with plan for surgical intervention, he underwent surgery on 04/05/2020. Hospital course: Details of patient's surgery can be found in operative report. Patient tolerated the procedure well and was subsequently transported to orthopedic floor. Patient's orthopeidc and medical care was provided daily. Patient had daily laboratory tests performed for evaluation of overall blood counts. Patient had daily physical therapy to include strengthening range of motion as well as education with walker ambulation. Patient was treated with Lovenox for their postoperative DVT prophylaxis during their inpatient stay. Patient was noted to have a relatively uneventful postoperative course. Patient reported satisfactory pain control with oral pain medications by postoperative day 0. Patient showed satisfactory progress with physical therapy. Patient moved steadily through the program and had no difficulty meeting the goals by postoperative day 1. Given patient's otherwise satisfactory course and having met physical therapy goals, plan is to discharge patient home on postoperative day 1. Discharge condition/disposition: Patient will be discharged home in stable condition. Discharge medications: Instructions are given on resumption of patient's normal daily medications per primary care recommendation, in addition patient will be prescribed [place] 5 mg/325 mg, Colace under milligrams, aspirin 325 mg Discharge instructions: 1. Wound care and infection precautions, [keep incision dry and covered while showering], no lotions, creams, moisturizers. No soaking, tubs, pools, hottubs. Do not scrub over the incision. 2. Nonweightbearing right lower extremity, utilize a scooter when ambulating. Keep splint clean and dry and covered while showering 3. Ice and elevate when necessary. Do not exceed 20 minutes per hour with ice pack. 4. Utilize compression sleeve until seen at first follow up appointment. 7. Pain meds and anticoagulants per prescription. 8. Pain medication has potential to cause constipation. Increase oral fluid and fiber intake. Contact primary care provider if you have not had a bowel movement within 48 hours after discharge 9. No anti-inflammatory medication until discussed at first post operative visit, this including Motrin, Aleve, Mobic, Diclofenac 10. Follow up in office at 2 weeks postop with Brandon Harvey PA-C 11. Follow up with your primary care doctor 7-10 days after discharge. 12. Contact [facility] with any questions, . Procedures: Open reduction internal fixation right ankle lateral malleolus fracture with op en syndesmotic repair Patient Condition at Discharge: Good Plan - Discharge Summary Discharge Rx Participant: Yes New Discharge Prescriptions: New Aspirin 325 mg PO DAILY #30 tab Docusate [Colace] 100 mg PO DAILY #14 capsule Hydrocodone/Acetaminophen [[place] 5-325] 1 each PO Q6HR PRN #28 tab PRN Reason: Pain No Action L.acidoph,Paracasei, B.lactis [Probiotic] 2 cap PO DAILY Cholecalciferol [Vitamin D3 (25 Mcg = 1000 Iu)] 2,000 unit PO DAILY Ascorbic Acid [Vitamin C] 500 mg PO DAILY Multivit-Mins/Iron/Folic/Lycop [Centrum Men's Tablet] 2 tab PO DAILY Lisinopril-Hctz 10-12.5 mg [Zestoretic 10-12.5] 1 tab PO DAILY Zinc 50 mg PO DAILY Discharge Medication List Ascorbic Acid [Vitamin C] 500 mg PO DAILY 04/03/20 [History] Cholecalciferol [Vitamin D3 (25 Mcg = 1000 Iu)] 2,000 unit PO DAILY 04/03/20 [History] L.acidoph,Paracasei, B.lactis [Probiotic] 2 cap PO DAILY 04/03/20 [History] Lisinopril-Hctz 10-12.5 mg [Zestoretic 10-12.5] 1 tab PO DAILY 04/03/20 [History] Multivit-Mins/Iron/Folic/Lycop [Centrum Men's Tablet] 2 tab PO DAILY 04/03/20 [History] Zinc 50 mg PO DAILY 04/03/20 [History] Aspirin 325 mg PO DAILY #30 tab 04/06/20 [Rx] Docusate [Colace] 100 mg PO DAILY #14 capsule 04/06/20 [Rx] Hydrocodone/Acetaminophen [[place] 5-325] 1 each PO Q6HR PRN #28 tab 04/06/20 [Rx] Follow up Appointment(s)/Referral(s): Rush Perales MD [Primary Care Provider] - 04/17/20 2:20 pm Froilan Chirinos DO [Doctor of Osteopathic Medicine] - 04/20/20 8:10 am Activity/Diet/Wound Care/Special Instructions: Orthopedic discharge instructions: 1. Utilize a splint, do not remove 2. Keep splint dry and covered while showering 3. Ice and elevate 4. Utilize knee scooter when ambulating, nonweightbearing of the right leg 5. Pain medication as needed, stool softener as needed 6. Aspirin 325 mg daily for DVT prophylaxis 7. Plan for follow-up at [facility] 2 weeks Discharge Disposition: HOME SELF-CARE
--- NOTE | 2020-04-06 15:48 | P.PN ---
Subjective Progress Note Date: 04/06/20 - Chief Complaint Right ankle injury - History of Present Illness Consultation: This is a pleasant 49-year-old patient of Dr. Perales. Patient was working on a ladder on uneven ground and lost balance. The ladder fell on his right ankle. Resulting in severe pain. Patient brought into the ER x-ray did confirm a fracture. Patient denies any cardiac or pulmonary history. Has got a good exercise tolerance. No cardiac or respiratory symptoms. No fever no chills. Has a history of hypertension. And kidney stones in the past. Has got a Bernardo wrap in the right ankle. Due for surgery tomorrow. Admitted with acute subluxation of the tibiotalar joint with widening of the medial sclera space, on the right foot Today-saw the patient this afternoon. Pending to go down for surgery. Late in the day patient was taken for surgery. 04/06/2020 Patient is seen and evaluated in follow-up with no acute overnight issues. Patient is status post right ankle ORIF of the lateral malleolus fracture with open syndesmotic ligament repair. Surgical casting and Bernardo wrap are intact with no surrounding swelling noted. Patient is able to move toes and denies any numbness or tingling. Cap Refill is less than 3. Patient does have right lower extremity elevated on a pillow and instructed to continue to do so at home. Patient does have a history of hypertension and takes lisinopril/hydrochlorothiazide which has been resumed. Patient's blood pressures were on the lower side and being closely monitored. Instructed the patient to continue monitoring and follow-up with primary care provider with a diary of readings. Review of systems: Constitutional: No reports of fatigue, fever, or chills Cardiovascular: No reports of chest pain or palpitations Respiratory: No reports of shortness of breath or cough GI: No reports of nausea, vomiting, or diarrhea : No reports of dysuria or retention Neurovascular: No reports of weakness or numbness All medications have been reviewed Objective - Vital Signs Vital signs: Vital Signs Temp 98.5 F 04/06/20 07:34 Pulse 70 04/06/20 08:00 Resp 18 04/06/20 08:00 BP 102/60 04/06/20 07:34 Pulse Ox 98 04/06/20 07:34 Intake & Output 01/04/06/20 04/06/20 18:59 06:59 18:59 Intake Total 1100 1100 Output Total 500 912 Balance 600 188 Intake: IV 1100 1100 Output: Urine 500 900 Estimated Blood Loss 12 Other: Voiding Method Urinal Urinal Urinal - Exam Gen: This is a 49-year-old male awake, alert and oriented 3, well-developed, w ell-nourished. HEENT: Head is atraumatic, normocephalic. Pupils equal, round. Sclerae is anicteric. NECK: Supple. No JVD. No lymphadenopathy. No thyromegaly. LUNGS: Clear to auscultation. No wheezes or rhonchi. No intercostal retractions. HEART: Regular rate and rhythm. No murmur. ABDOMEN: Soft. Bowel sounds are present. No masses. No tenderness. EXTREMITIES: No pedal edema. No calf tenderness. Right lower extremity surgical splint and casting of the right ankle is dry and intact with positive Refill of less than 3 and able to move all toes with no tingling or numbness noted NEUROLOGICAL: Patient is awake, alert and oriented x3. Cranial nerves 2 through 12 are grossly intact. - Labs CBC & Chem 7: 04/03/20 22:20 04/03/20 22:20 Assessment and Plan Assessment: -Acute subluxation of the tibiotalar joint with widening of the medial sclera space secondary to fall status post open reduction internal fixation of right ankle. -Right distal tibia fracture, secondary to fall -Essential hypertension, home medications have been resumed -History of of Kidney stones -DVT prophylaxis: Subcutaneous Lovenox Plan: Continue with current medications. Home medications a blood pressure medications have been resumed. Patient instructed to increase activity as tolerated. Patient also instructed to elevate right lower extremity while at rest and monitor toes and surrounding area around the casting for signs of swelling or discomfort. Patient instructed to follow-up with primary care provider upon discharge as well. Will continue to follow along with orthopedic surgery during hospitalization. Further recommendations to follow. He should states he is being discharged today. Patient is medically clear and stable for discharge.
== END 2020-04-06 12:25 | disposition home or self-care (01) | DRG 494 ==
LOC: EC 16:04 → 4SSUR 20:27 → OBSVTOIN 04-06 07:57
PROVIDERS: ADMIT Orthopaedic Surgery; ATTEND Orthopaedic Surgery
PROC: 0SSFXZZ Reposition Right Ankle Joint, External Approach (ICD-10-PCS; 2020-04-03)
PROC: 0SUF0JZ Supplement Right Ankle Joint with Synthetic Substitute, Open Approach (ICD-10-PCS; 2020-04-05)
PROC: 0QSJ04Z Reposition Right Fibula with Internal Fixation Device, Open Approach (ICD-10-PCS; principal; 2020-04-05 07:30)
DX: S82.61XA Displaced fracture of lateral malleolus of right fibula, initial encounter for closed fracture (principal); I10 Essential (primary) hypertension; S93.431A Sprain of tibiofibular ligament of right ankle, initial encounter; N20.0 Calculus of kidney; F41.9 Anxiety disorder, unspecified; W11.XXXA Fall on and from ladder, initial encounter; Z79.899 Other long term (current) drug therapy; Z98.890 Other specified postprocedural states; Z80.8 Family history of malignant neoplasm of other organs or systems
CPT/HCPCS: 27788; 64445; 72170; 76942; 80053; 85025; 85610; 85730; 93005; 96372; 96374; 99284

== ENCOUNTER 2022-07-22 09:47 | Day surgery (SDC) | payer BC, OTHER ==
[2022-07-18 15:12] VITALS: BMI 31.3
[~2022-07-22 09:47] MED LIST: LACTATED RINGERS 1,000 ML IV SCH
[2022-07-22 10:00] VITALS: TEMP 98
[2022-07-22] MEDS ORDERED: LIDOCAINE 1% (10MG/ML) FOR IV START INTRADERMA ONE (10:05)
[2022-07-22] MEDS ORDERED: PROPOFOL 10 MG/ML 20 ML VIAL IV ONE (10:38)
--- NOTE | 2022-07-22 10:57 | P.PCN ---
Date of Procedure: 07/22/22 Procedure(s) Performed: BRIEF HISTORY: Patient is a 51-year-old pleasant white male scheduled for an elective colonoscopy as a part of screening for colon cancer. PROCEDURE PERFORMED: Colonoscopy with snare polypectomy. PREOPERATIVE DIAGNOSIS: Screening for colon cancer. IV sedation per Anesthesia. PROCEDURE: After informed consent was obtained, the patient, was brought into the endoscopy unit. IV sedation was administered by Anesthesia under continuous monitoring. Digital rectal examination was normal. Initially the Olympus CF-160 flexible video colonoscope was then inserted in the rectum, gradually advanced into the cecum without any difficulty. Careful examination was performed as the scope was gradually being withdrawn. Ileocecal valve and the appendiceal orifice were visualized and appeared normal. Prep was excellent. Mucosa of the cecum, and a 5 mm cecal polyp removed by snare polypectomy. Rest of the ascending colon, transverse colon, descending colon, sigmoid colon, and rectum appeared normal. Retroflexion was performed in the rectum and no lesions were seen. The patient tolerated the procedure well. IMPRESSION: 5 mm sessile cecal polyp status post polypectomy Rest of the colon appeared normal RECOMMENDATIONS: Findings of this examination were discussed with the patient as well as his family. He was advised to follow with the biopsy results. If the biopsy result adenoma he can have a repeat colonoscopy in 5 years..
[2022-07-22 11:22] VITALS: BP 137/87; PULSE 68; RESP 18
== END 2022-07-22 11:32 | disposition home or self-care (01) ==
LOC: ORWHC2ENDO 09:47
PROVIDERS: ATTEND Internal Medicine Gastroenterology
DX: Z12.11 Encounter for screening for malignant neoplasm of colon (principal); D12.0 Benign neoplasm of cecum; I10 Essential (primary) hypertension; Z79.899 Other long term (current) drug therapy
CPT/HCPCS: 88305; 45385; J2704